=== PATIENT | female | born 2000 | race Caucasian/White ===

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

== ENCOUNTER 2019-02-02 11:50 | Inpatient (IN) | payer MEDICAID ==
[~2019-02-02] VITALS: Ht 154.9 cm; Wt 72.6 kg
[~2019-02-02 11:50] MED LIST: CEPH500C PO; DOCU-144 PO; LEVE-5 PO; ONDA4TAB14 PO
[2019-02-02 12:12] VITALS: BP 112/71; PULSE 77; RESP 18; Ht 154.9 cm; Wt 72.6 kg
[2019-02-02] MEDS ORDERED: LIDOCAINE 1% (MPF) 30 ML INJ INJ PRN (13:00)
[2019-02-02] MEDS ORDERED: MISOPROSTOL 200 MCG TAB PR PRN (13:00)
[2019-02-02] MEDS ORDERED: OXYTOCIN 30 UNITS/LR 500 ML IV SCH ×3 (13:00)
[2019-02-02] MEDS ORDERED: METHYLERGONOVINE 0.2 MG INJ IM PRN (13:00)
[2019-02-02] MEDS ORDERED: BUTORPHANOL 2 MG INJ IV PRN ×2 (13:00)
[2019-02-02] MEDS ORDERED: OXYTOCIN 30 UNITS/LR 500 ML IV PRN (13:00)
[2019-02-02] MEDS ORDERED: CARBOPROST 250 MCG INJ IM PRN (13:00)
[2019-02-02] MEDS: LACTATED RINGER'S 1,000 ML IV SCH ×3 (16:57→23:30)
[2019-02-03] MEDS: LACTATED RINGER'S 1,000 ML IV SCH ×3 (06:44→15:33)
[2019-02-03] MEDS: ONDANSETRON 4 MG INJ IV PRN ×2 (08:43→15:41)
[2019-02-03] MEDS ORDERED: DEXTROSE 5%-LR 1,000 ML IV SCH (09:00)
--- NOTE | 2019-02-03 09:45 | HP ---
Date/Time of Note Date/Time of Note DATE: 02/03/19 TIME: 09:44 OB - History Hx of Present : 1 Para: 0 Care: Good Care Ultrasounds: Normal mid trimester US Obstetrical Complications: None Medical Complications: None Past Family/Social History * Past Medical, Surgical, Family and Obstetric Histories reviewed from chart. OB Admission Exam Vital Signs Vital Signs Vital Signs Date Temp Pulse Resp B/P (MAP) Pulse Ox O2 O2 Flow FiO2 Time Delivery Rate 02/02/19 98.2 77 18 112/71 12:12 (85) Physical Exam HEENT: WNL Heart: Rhythm Normal Lungs: Clear, Equal Abdomen: WNL Extremities: Normal Reflexes: Normal Cervical Dilatation: 4cm Effacement: 75% Station: -1 Membranes: Ruptured Amniotic Fluid: Clear Heart Rate: 130's Accelerations: Accelerations Present Decelerations: No Decelerations Varibility: Moderate Contractions on Admission: 6-10 Minutes Apart Intensity: Moderate Last 72 hours Lab Results CBC & BMP 02/02/19 13:24 OB Assessment/Plan Reason for admission: active labor Plan: Expectant Management ANDREW GARCIAS MD Feb 03, 2019 09:45
--- NOTE | 2019-02-03 12:16 | PREAC ---
Date/Time of Note Date/Time of Note DATE: 02/03/19 TIME: 12:15 Anesthesia Eval and Record Evaluation Time Pre-Procedure Interview DATE: 02/03/19 TIME: 12:15 Age 18 Sex female NPO: 8 hrs Preoperative diagnosis Planned procedure Labor epidural Past Medical History Past Medical History: None Surgery & Anesthesia Issues No known issue Meds Anticoagulation: No Beta Emanuel within 24 hr: Yes Active Scripts Docusate Sodium* (Colace*) 100 Mg Capsule, 100 MG PO DAILY, #30 CAP Prov:NATALIE HARRELL PA-C 07/23/18 Ondansetron (Ondansetron Odt) 4 Mg Tab.rapdis, 4 MG PO Q6H PRN for NAUSEA AND/OR VOMITING, #10 TAB Prov:NATLAIE HARRELL PA-C 07/23/18 Cephalexin* (Cephalexin*) 500 Mg Capsule, 500 MG PO Q8, #9 CAP Prov:SERENA LYNCH DO 04/30/17 Levetiracetam* (Keppra*) 500 Mg Tablet, 500 MG PO BID, #30 TAB Prov:SERENA LYNCH DO 04/30/17 Current Medications Lactated Ringer's 1,000 ml @ 125 mls/hr Q8H IV Last administered on 02/03/19at 12:00; Admin Dose 125 MLS/HR; Start 02/02/19 at 12:35 Butorphanol Tartrate (Stadol) 1 mg Q2H PRN IV .PAIN SCALE 1-5; Start 02/02/19 at 13:00 Butorphanol Tartrate (Stadol) 2 mg Q2H PRN IV .PAIN SCALE 6-10; Start 02/02/19 at 13:00 Lidocaine (Xylocaine 1% (Mpf)) 30 ml ONCE PRN INJ .EPISIOTOMY; Start 02/02/19 at 13:00 Oxytocin/Lactated Ringer's 500 ml @ 500 mls/hr ONCE POST IV ; Start 02/02/19 at 13:00 Oxytocin/Lactated Ringer's 500 ml @ 125 mls/hr POST IV ; Start 02/02/19 at 13:00 Oxytocin/Lactated Ringer's 500 ml @ 0 mls/hr ONCE PRN IV .VAGINAL BLEEDING; Start 02/02/19 at 13:00 Methylergonovine Maleate (Methergine) 0.2 mg ONCE PRN IM .VAGINAL BLEEDING; Start 02/02/19 at 13:00 Carboprost Tromethamine (Hemabate) 250 mcg ONCE PRN IM .VAGINAL BLEEDING; Start 02/02/19 at 13:00 Misoprostol (Cytotec) 1,000 mcg ONCE PRN VT .VAGINAL BLEEDING; Start 02/02/19 at 13:00 Oxytocin/Lactated Ringer's 500 ml @ 0 mls/hr FOR INDUCTION IV Last administered on 02/03/19at 00:00; Admin Dose 1 MLS/HR; Start 02/02/19 at 13:00 Ondansetron HCl (Zofran Inj) 4 mg Q4H PRN IV NAUSEA AND/OR VOMITING Last administered on 02/03/19at 08:43; Admin Dose 4 MG; Start 02/03/19 at 08:00 Dextrose/Lactated Ringer's 1,000 ml @ 125 mls/hr Q8H IV Last administered on 02/03/19at 09:45; Admin Dose 125 MLS/HR; Start 02/03/19 at 09:00 Meds reviewed: Yes Allergies Coded Allergies: No Known Allergy (Unverified , 04/30/17) Allergies Reviewed: Yes Labs/Studies Labs Reviewed: Reviewed by anesthesiologist Result Diagram: 02/02/19 1324 Laboratory Tests 02/02/19 13:24 Blood Bank Test 02/02/19 13:24 Antibody Screen NEGATIVE Blood Type O POSITIVE Rh Immune Globulin Candidate NO test: Positive Pre-procedure Exam Last vitals Vital Signs Date Temp Pulse Resp B/P (MAP) Pulse Ox O2 O2 Flow FiO2 Time Delivery Rate 02/02/19 98.2 77 18 112/71 12:12 (85) Airway: Adequate mouth opening, Adequate thyromental dist Mallampati: Mallampati II Teeth: Normal Lung: Normal Heart: Normal ASA Physical Status ASA physical status: 2 Emergency: None Planned Anesthetic Neuraxial: Epidural Pre-operative Attestations Prior to commencing anesthesia and surgery, the patient was re-evaluated, there was verification of: *The patient's identity *The results of appropriate recent lab work and preoperative vital signs *The above evaluation not changing prior to induction *Anesthetic plan, risk benefits, alternative and complications discussed with patient/family; questions answered; patient/family understands, accepts and wishes to proceed. OLIVIA PATEL Feb 03, 2019 12:16
[2019-02-03] MEDS ORDERED: HYDROmorphONE 0.5 MG/0.5 ML SYG IV PRN ×2 (12:30)
[2019-02-03] MEDS ORDERED: KETOROLAC 30 MG INJ IV PRN (12:30)
[2019-02-03] MEDS ORDERED: NALOXONE (0.4 MG/ML) INJ IV PRN (12:30)
[2019-02-03] MEDS ORDERED: DIPHENHYDRAMINE 50 MG INJ IV PRN (12:30)
[2019-02-03] MEDS ORDERED: ONDANSETRON 4 MG INJ IV PRN (12:30)
[2019-02-03] MEDS ORDERED: FENTAnyl 2MCG/ML-ROPIV 0.2% 100 ML BAG EPI SCH (12:30)
[2019-02-03] MEDS ORDERED: morphine SULFATE/PF (10 MG/10 ML) INJ ONE (12:45)
--- NOTE | 2019-02-03 15:57 | LDN ---
Date/Time of Note Date/Time of Note DATE: 02/03/19 TIME: 15:56 Delivery Summary Placenta Delivered: Spontaneously Meconium: none Episiotomy: No Perineal laceration: 1 Anesthesia type: Epidural Estimated blood loss: 300 Sponge & Needle done & correct: Yes All needle counts correct: Yes Any foreign bodies felt in the: No ANDREW GARCIAS MD Feb 03, 2019 15:56
[2019-02-03] MEDS: LACTATED RINGER'S 1,000 ML IV* SCH (20:41)
[2019-02-03] MEDS ORDERED: OXYTOCIN 30 UNITS/LR 500 ML IV SCH (20:41)
[2019-02-03 20:45] VITALS: BP 110/64; PULSE 78; RESP 20
[2019-02-03] MEDS ORDERED: SENNA/DOCUSATE NA (8.6MG/50MG) TAB PO PRN (21:00)
[2019-02-03] MEDS ORDERED: METHYLERGONOVINE 0.2 MG INJ IM PRN (21:00)
[2019-02-03] MEDS ORDERED: CARBOPROST 250 MCG INJ IM PRN (21:00)
[2019-02-03] MEDS ORDERED: BENZOCAINE 20% 56 ML SPRAY TOP PRN (21:00)
[2019-02-03] MEDS ORDERED: OXYTOCIN 30 UNITS/LR 500 ML IV PRN (21:00)
[2019-02-03] MEDS ORDERED: HYDROCODONE/APAP (5/325) TAB PO PRN (21:00)
[2019-02-03] MEDS ORDERED: MISOPROSTOL 200 MCG TAB PR PRN (21:00)
[2019-02-03] MEDS ORDERED: DIPHENHYDRAMINE 25 MG CAP PO PRN (21:00)
[2019-02-03] MEDS ORDERED: ZOLPIDEM 5 MG TAB PO PRN (21:00)
[2019-02-03] MEDS ORDERED: LANOLIN HPA 1 PKT TOP PRN (21:00)
[2019-02-03] MEDS ORDERED: ACETAMINOPHEN 325 MG TAB PO PRN (21:00)
[2019-02-03] MEDS ORDERED: WITCH HAZEL/GLYCERIN PAD PR PRN (21:00)
[2019-02-03] MEDS ORDERED: MAGNESIUM HYDROXIDE 30ML CUP PO PRN (21:00)
[2019-02-03] MEDS: IBUPROFEN 800 MG TAB PO SCH (21:26)
[2019-02-04] MEDS: LACTATED RINGER'S 1,000 ML IV* SCH (04:41)
[2019-02-04 04:59] VITALS: BP 111/60; PULSE 91; RESP 20
[2019-02-04] MEDS: IBUPROFEN 800 MG TAB PO SCH ×4 (05:39→17:58)
[2019-02-04 08:15] VITALS: BP 102/57; PULSE 73; RESP 18
--- NOTE | 2019-02-04 11:12 | DS ---
Date/Time of Note Date/Time of Note DATE: 02/04/19 TIME: 11:11 Discharge Summary Admission/Discharge Info Admit Date/Time Feb 02, 2019 at 12:53 Discharge Date/Time Discharge Diagnosis term Patient Condition: Stable Hospital Course unremarkable Home Meds Active Scripts Docusate Sodium* (Colace*) 100 Mg Capsule, 100 MG PO DAILY, #30 CAP Prov:NATALIE HARRELL PA-C 07/23/18 Ondansetron (Ondansetron Odt) 4 Mg Tab.rapdis, 4 MG PO Q6H PRN for NAUSEA AND/OR VOMITING, #10 TAB Prov:NATALIE HARRELL PA-C 07/23/18 Cephalexin* (Cephalexin*) 500 Mg Capsule, 500 MG PO Q8, #9 CAP Prov:SERENA LYNCH DO 04/30/17 Levetiracetam* (Keppra*) 500 Mg Tablet, 500 MG PO BID, #30 TAB Prov:SERENA LYNCH DO 04/30/17 Primary Care Provider Care Physician No Primary Pending Labs Laboratory Tests Test 02/04/19 06:30 02/04/19 06:51 Lab Scanned Report REFERENCE LAB [id number] White Blood Count 14.8 10^3/ul (4.8-10.8) Red Blood Count 3.37 10^6/ul (4.20-5.40) Hemoglobin 9.5 g/dl (12.0-16.0) Hematocrit 28.4 % (37.0-47.0) Mean Corpuscular Volume 84.3 fl (72.0-104.0) Mean Corpuscular Hemoglobin 28.2 pg (29.0-33.0) Mean Corpuscular 33.5 g/dl (32.0-37.0) Hemoglobin Concent Red Cell Distribution Width 13.6 % (11.5-14.5) Platelet Count 179 10^3/UL (140-415) Mean Platelet Volume 11.0 fl (7.4-10.4) Immature Granulocytes % 0.400 % (0.001-0.429) Neutrophils % 74.5 % (30.0-74.0) Lymphocytes % 14.8 % (18.0-55.0) Monocytes % 8.9 % (0.0-13.0) Eosinophils % 1.0 % (0.0-7.0) Basophils % 0.4 % (0.0-2.0) Nucleated Red Blood Cells % 0.0 /100WBC (0.0-0.0) Immature Granulocytes # 0.060 10^3/ul (0.0-0.031) Neutrophils # 11.0 10^3/ul (1.6-7.5) Lymphocytes # 2.2 10^3/ul (0.8-2.9) Monocytes # 1.3 10^3/ul (0.3-0.9) Eosinophils # 0.2 10^3/ul (0.0-0.5) Basophils # 0.1 10^3/ul (0.0-0.1) Nucleated Red Blood Cells # 0.0 10^3/ul (0.0-0.0) ANDREW GARCIAS MD Feb 04, 2019 11:12
[2019-02-04 16:00] VITALS: BP 95/56; PULSE 75; RESP 18
[2019-02-04 19:30] VITALS: BP 110/66; PULSE 75; RESP 20
[2019-02-05] MEDS: IBUPROFEN 800 MG TAB PO SCH ×3 (00:46→12:25)
[2019-02-05 04:00] VITALS: BP 104/57; PULSE 67; RESP 19
[2019-02-05 08:00] VITALS: BP 112/73; PULSE 74; RESP 18
[2019-02-05] MEDS ORDERED: DIPHTH/TET/ACEL PERTUSS (ADULT) 0.5 ML VIAL IM* ONE (09:00)
[2019-02-05] MEDS ORDERED: VARICELLA VACCINE LIVE/PF 1,350 UNIT/0.5 ML ML SC* ONE (09:00)
[2019-02-05] MEDS ORDERED: MEASLES,MUMPS,RUBELLA VACCINE INJ SC* ONE (09:00)
--- NOTE | 2019-02-05 11:46 | PAC ---
Date/Time of Note Date/Time of Note DATE: 02/05/19 TIME: 11:46 Post-Anesthesia Notes Post-Anesthesia Note Last documented vital signs Vital Signs Date Temp Pulse Resp B/P (MAP) Pulse Ox O2 O2 Flow FiO2 Time Delivery Rate 02/05/19 98.2 74 18 112/73 08:00 (86) 02/05/19 Room Air 04:00 Activity: WNL Respiratory function: WNL Cardiovascular function: WNL Mental status: Baseline Pain reasonably controlled: Yes Hydration appropriate: Yes Nausea/Vomiting absent: Yes OLIVIA PATEL Feb 05, 2019 11:46
[2019-02-05 15:54] VITALS: BP 113/58; PULSE 77; RESP 18
--- NOTE | 2019-02-05 18:15 | DS ---
Date/Time of Note Date/Time of Note DATE: 02/05/19 TIME: 18:13 Obstetrical Discharge Record Final Diagnosis Final Diagnosis: Term delivered Other Final Diagnosis day #2 Status post Patient stable and afebrile Vital signs stable VS - Last 72 Hours, by Label Date Temp Pulse Resp B/P (MAP) Pulse Ox O2 O2 Flow FiO2 Time Delivery Rate 02/05/19 98.5 77 18 113/58 15:54 (76) 02/05/19 98.2 74 18 112/73 08:00 (86) 02/05/19 98.3 67 19 104/57 Room Air 04:00 (73) 02/04/19 97.8 75 20 110/66 Room Air 19:30 (81) 02/04/19 98.2 75 18 95/56 (69) Room Air 16:00 02/04/19 98.0 73 18 102/57 Room Air 08:15 (72) 02/04/19 98.2 91 20 111/60 Room Air 04:59 (77) 02/03/19 98.1 78 20 110/64 Room Air 20:45 (79) Hematology - 72 Hrs Test 02/04/19 06:51 Hematocrit 28.4 % (37.0-47.0) #L Hemoglobin 9.5 g/dl (12.0-16.0) #L Mean Corpuscular Hemoglobin 28.2 pg (29.0-33.0) L Mean Corpuscular Hemoglobin Concent 33.5 g/dl (32.0-37.0) Mean Corpuscular Volume 84.3 fl (72.0-104.0) Mean Platelet Volume 11.0 fl (7.4-10.4) H Platelet Count 179 10^3/UL (140-415) # Red Blood Count 3.37 10^6/ul (4.20-5.40) #L Red Cell Distribution Width 13.6 % (11.5-14.5) White Blood Count 14.8 10^3/ul (4.8-10.8) #H Abdomen soft, fundus firm Perineum intact Extremities nontender Assessment and plan Patient stable and doing well Plan to discharge home Patient instructed to follow-up with NARCOTICS INVESTIGATOR in 2 and 6 weeks Vaginal Delivery Obstetrical Delivery: Spontaneous Condition on Discharge Physical Assessment Last Vitals: VS - Last 72 Hours, by Label Date Temp Pulse Resp B/P (MAP) Pulse Ox O2 O2 Flow FiO2 Time Delivery Rate 02/05/19 98.5 77 18 113/58 15:54 (76) 02/05/19 98.2 74 18 112/73 08:00 (86) 02/05/19 98.3 67 19 104/57 Room Air 04:00 (73) 02/04/19 97.8 75 20 110/66 Room Air 19:30 (81) 02/04/19 98.2 75 18 95/56 (69) Room Air 16:00 02/04/19 98.0 73 18 102/57 Room Air 08:15 (72) 02/04/19 98.2 91 20 111/60 Room Air 04:59 (77) 02/03/19 98.1 78 20 110/64 Room Air 20:45 (79) Voiding: Yes Bowel Movement: Yes Breast: Soft, non-tender Fundus: Firm Calf Tenderness: No Patient Condition: Good Copies To: CC: ANDREW GARCIAS MD ; DOMINGUEZ HALLMAN MD Feb 05, 2019 18:15
--- NOTE | 2019-02-06 17:14 | DELSUM ---
Delivery Summary A-C Datetime Report Generated by CPN: 02/06/2019 17:13 DELIVERY PERSONNEL Pot Washer: Sebunnya, Phoebe MATERNAL INFORMATION Delivery Anesthesia: Epidural Medications in Delivery: LR 500ML PITOCIN 30 UNITS Delivery QBL (ml): 300 Placenta Cultured: No Maternal Complications: Other Other Maternal Complications: IN LABOR AND SPOTTING LABOR SUMMARY EDC: 02/09/2019 00:00 No. Babies in Womb: 1 Attempted: No Labor Anesthesia: Epidural LABOR INFORMATION Reason for Induction: Not Applicable Reason for Induction- Other: IN LABOR Onset of Labor: 02/02/2019 23:00 Complete Dilatation: 02/03/2019 18:13 Group B Beta Strep: Negative Antibiotics # of Doses: 0 Steroids Given: None Reason Steroids Not Administered: Not Applicable MEMBRANES Membranes Rupture Method: Artificial Rupture of Membranes: 02/03/2019 09:28 Length of Rupture (hr): 6.33 Amniotic Fluid Color: Clear Amniotic Fluid Amount: Moderate Amniotic Fluid Odor: Normal STAGES OF LABOR Stage 1 hr: 19 Stage 1 min: 13 Stage 2 hr: -2 Stage 2 min: -25 Stage 3 hr: 0 Stage 3 min: 5 Total Time in Labor hr: 16 Total Time in Labor min: 53 VAGINAL DELIVERY Episiotomy: None Laceration Extension: First Degree Laceration Type: Perineal Laceration Repair: Yes Initial Vag Sponge Count: 10 Final Vag Sponge Count: 10 Initial Vag Sharps Count: 2 Final Vag Sharps Count: 2 Sponge Count Correct: Yes; Vaginal Sweep Performed Sharps Count Correct: Yes BABY A INFORMATION Delivery Date/Time: 02/03/2019 15:48 Method of Delivery: Vaginal Born in Route : No : N/A Forceps: N/A Vacuum Extraction: N/A Shoulder Dystocia : N/A SHOULDER DYSTOCIA BABY A Delivery Date/Time: 02/03/2019 15:48 PRESENTATION/POSITION BABY A Presentation: Cephalic Cephalic Presentation: Vertex Vertex Position: Left Occipital Anterior Breech Presentation: N/A PLACENTA INFORMATION BABY A Placenta Delivery Time : 02/03/2019 15:53 Placenta Method of Delivery: Spontaneous Placenta Status: Delivered SCORES BABY A Heart Rate 1 min: >100 bpm Resp Effort 1 min: Good Cry Reflex Irritability 1 min: Cough/Sneeze/Pulls Away Muscle Tone 1 min: Active Motion Color 1 min: Blue/Pale Resuscitation Effort 1 min: Tactile Stimulation SCORE 1 MIN: 8 Heart Rate 5 min: >100 bpm Resp Effort 5 min: Good Cry Reflex Irritability 5 min: Cough/Sneeze/Pulls Away Muscle Tone 5 min: Active Motion Color 5 min: Body [place], Extremit Blue Resuscitation Effort 5 min: Tactile Stimulation SCORE 5 MIN: 9 INFANT INFORMATION BABY A Gestational Age at Delivery: 39.1 Gestational Status: Full Term- 39- 40.6 Weeks Outcome : Liveborn, with signs of life Condition : Stable Sex: Female IDENTIFICATION/MEDS BABY A ID Band Number: [id number] ID Band Location: Right Leg; Left Arm Sensor Applied: Yes Sensor Number: [id number] Sensor Location : Cord Clamp Vitamin K Given : Not Given Erythromycin Given: Not Given WEIGHT/LENGTH BABY A Infant Birthweight (gm): 3080 Weight (lb): 6 Weight (oz): 13 Infant Length (in): 19.50 Infant Length (cm): 49.53 CORD INFORMATION BABY A No. Cord Vessels: 3 Nuchal Cord : N/A Nuchal Cord- Other: 0 True Knot: 0 Cord Blood Taken: Yes Banking/Donate Info: NO Suction: Mouth; Nose ASSESSMENT BABY A Complications: Multiple Variable Decels Physical Findings at Delivery: Within Normal Limits Respirations: Appears Normal Appliance Service Representative/ALS Called : No Infant Care By: uriel rnc Transferred To: Remains with Mother
== END 2019-02-05 17:12 | disposition home or self-care (01) | DRG 807 ==
LOC: OBT 11:50 → L-D 11:51 → OBT 12:52 → L-D 12:53 → PP1 02-03 19:51
PROVIDERS: ADMIT Obstetrics & Gynecology; ATTEND Obstetrics & Gynecology
PROC: 10E0XZZ Delivery of Products of Conception, External Approach (ICD-10-PCS; principal; 2019-02-03)
DX: O80 Encounter for full-term uncomplicated delivery (principal); Z37.0 Single live birth; Z3A.38 38 weeks gestation of pregnancy
CPT/HCPCS: 62322; 85025; 85610; 85730; 86592; 86850; 86900; 86901; 87340; 90716; G0463; J0595; J2274; J2405; J2590; J3010; J7120; J7121